=== PATIENT | female | born 1930 | race Caucasian/White ===

== ENCOUNTER 2017-11-04 07:22 | Inpatient (IN) | payer OTHER, MEDICAID ==
[~2017-11-04] VITALS: Ht 160 cm; Wt 72.6 kg
[2017-11-04] MEDS ORDERED: ONDANSETRON HCL 4MG/2ML VIAL IV STA (08:21)
[2017-11-04] MEDS ORDERED: LIDOCAINE HCL 1%/EPI 1:200,000 30 ML VIAL MC ONE (08:30)
[2017-11-04] MEDS ORDERED: TETANUS, DIPHTHERIA, PERTUSSIS VAC/PF 0.5ML (>7YR OLD) IM ONE (08:30)
[2017-11-04] MEDS ORDERED: BACITRACIN ZINC OINT UDPKT TOP ONE (08:30)
[2017-11-04 09:32] LABS: BASOPHILS % 0.3 % (0.0-2.0); EOSINOPHILS % 0.9 % (0.0-5.0); HEMATOCRIT. 38.8 % (36.0-48.0); LYMPHOCYTES % 10.7 % (20.0-50.0); MEAN CORPUSCULAR HEMOGLOBIN 31.5 pg (28.0-32.0); MONOCYTES % 4.6 % (2.0-8.0); NEUTROPHILS % 83.5 % (40.0-76.0); PLATELET 299 x1000/uL (130-400); RED BLOOD CELL COUNT 4.13 mill/uL (4.2-5.4); RED CELL DISTRIBUTION WIDTH 13.5 % (11.6-14.6)
[2017-11-04 09:34] LABS: CHLORIDE 104 mEq/L (98-107)
[2017-11-04 09:35] LABS: PROTHROMBIN TIME 10.6 sec (9.4-11.6)
[2017-11-04 09:45] LABS: CREATINE KINASE 137 IU/L (26-192)
[2017-11-04 10:59] LABS: CLARITY URINE CLEAR (CLEAR); COLOR URINE YELLOW (YELLOW); KETONES URINE NEGATIVE (NEGATIVE); LEUKOCYTE ESTERASE URINE NEGATIVE (NEGATIVE); NITRITE URINE NEGATIVE (NEGATIVE); OCCULT BLOOD URINE NEGATIVE (NEGATIVE); PH URINE 8.5 (4.5-8.0); PROTEIN URINE NEGATIVE (NEGATIVE); SPECIFIC GRAVITY URINE 1.014 (1.005-1.030); UROBILINOGEN URINE 0.2 E.U./dL (0.2-1.0)
[2017-11-04] MEDS ORDERED: ACETAMINOPHEN 325MG TABLET PO PRN (18:45)
[2017-11-04] MEDS ORDERED: MAGNESIUM/ALUMINUM HYDROXIDE/SIMETHICONE 30ML UDC PO PRN (18:45)
[2017-11-04] MEDS ORDERED: ONDANSETRON HCL 4MG/2ML VIAL IV PRN (18:45)
[2017-11-04] MEDS ORDERED: MAGNESIUM HYDROXIDE 400MG/5ML 30ML UDC PO PRN (18:45)
[2017-11-04] MEDS ORDERED: DIPHENHYDRAMINE 50MG/ML VIAL IV PRN (18:45)
[2017-11-04] MEDS ORDERED: CLONIDINE 0.1MG TABLET PO PRN (18:45)
[2017-11-04] MEDS ORDERED: DEXTROSE 50% WATER 50ML SYRINGE IV PRN ×2 (19:00→21:00)
[2017-11-04 21:00] VITALS: BP_SYST 130; BP_SYST 143; BP_DIAS 52; BP_DIAS 57
[2017-11-04] MEDS ORDERED: INSULIN LISPRO 100 UNITS/ML SUBCUT SCH (21:00)
[2017-11-04] MEDS ORDERED: BLOOD SUGAR DIAGNOSTIC STRIP TEST SCH (21:00)
[2017-11-04] MEDS ORDERED: ALPRAZOLAM 0.25 MG TABLET PO SCH (21:00)
[2017-11-04] MEDS ORDERED: SODIUM CHLORIDE 0.9% INJ 3ML FLUSH IVF SCH (22:00)
[2017-11-04] MEDS ORDERED: HYDR25TA PO (22:44)
[2017-11-04] MEDS ORDERED: ALPR-392 PO (22:53)
[2017-11-04] MEDS ORDERED: AMLO10TA80 PO (22:53)
[2017-11-04] MEDS ORDERED: [UNRECOGNIZED DRUG - CODE] PO (22:53)
[2017-11-04] MEDS ORDERED: ZINC50TA2 PO (22:53)
[2017-11-04] MEDS ORDERED: LISI40TA4 PO (22:53)
[2017-11-04] MEDS ORDERED: GLUC100017 PO (22:53)
[2017-11-04] MEDS ORDERED: OCD PO (22:53)
[2017-11-04] MEDS ORDERED: ATOR40TA70 PO (22:53)
[2017-11-04] MEDS ORDERED: ASPI-1159 PO ×2 (22:53)
[2017-11-04] MEDS ORDERED: CRAN450T10 PO (22:53)
[2017-11-05 02:00] VITALS: BP 136/56
[2017-11-05 04:00] VITALS: BP 138/55
[2017-11-05 06:59] LABS: BASOPHILS % 0.2 % (0.0-2.0); EOSINOPHILS % 2.3 % (0.0-5.0); HEMATOCRIT. 32.1 % (36.0-48.0); HEMOGLOBIN. 10.8 g/dL (12.0-16.0); LYMPHOCYTES % 13.9 % (20.0-50.0); MEAN CORPUSCULAR HEMOGLOBIN 31.6 pg (28.0-32.0); MEAN CORPUSCULAR VOLUME 93.7 fL (81.0-99.0); MEAN PLATELET VOLUME 8.4 fl (7.4-10.4); MONOCYTES % 7.4 % (2.0-8.0); NEUTROPHILS % 76.2 % (40.0-76.0); PLATELET 278 x1000/uL (130-400); RED BLOOD CELL COUNT 3.43 mill/uL (4.2-5.4); RED CELL DISTRIBUTION WIDTH 13.4 % (11.6-14.6)
[2017-11-05 07:26] LABS: CHLORIDE 104 mEq/L (98-107)
[2017-11-05] MEDS: BLOOD SUGAR DIAGNOSTIC STRIP TEST SCH ×2 (07:40→13:39)
[2017-11-05] MEDS ORDERED: PARO-41 PO (07:50)
[2017-11-05 08:00] VITALS: BP 131/57
[2017-11-05] MEDS: INSULIN LISPRO 100 UNITS/ML SUBCUT SCH ×2 (08:10→13:10)
[2017-11-05] MEDS ORDERED: AMLODIPINE 5MG TABLET PO SCH (09:00)
[2017-11-05] MEDS ORDERED: DOCUSATE SODIUM 100MG CAPSULE PO SCH (09:00)
[2017-11-05] MEDS ORDERED: LISINOPRIL 5MG TABLET PO SCH (09:00)
[2017-11-05] MEDS ORDERED: LORAZEPAM 2MG/ML CPJ IV NR (11:30)
[2017-11-05 12:00] VITALS: BP 130/54
[2017-11-05 14:40] VITALS: BP 119/54
[2017-11-05] MEDS ORDERED: ALPRAZOLAM 0.25 MG TABLET PO SCH (21:00)
[2017-11-05] MEDS ORDERED: ATORVASTATIN CALCIUM 40MG TABLET PO SCH (21:00)
== END 2017-11-05 15:32 | disposition short-term general hospital (02) | DRG 73 ==
LOC: ER 07:47 → 7WST 12:13 → EDBEDREQ 12:14 → EDBEDREQTM 12:14 → ENRESERV 19:26 → ER 20:50
PROVIDERS: ADMIT Internal Medicine; ATTEND Internal Medicine
PROC: 0HQ0XZZ Repair Scalp Skin, External Approach (ICD-10-PCS; principal; 2017-11-04)
DX: G90.8 Other disorders of autonomic nervous system (principal); G93.40 Encephalopathy, unspecified; S09.90XA Unspecified injury of head, initial encounter; D64.9 Anemia, unspecified; E11.9 Type 2 diabetes mellitus without complications; F41.1 Generalized anxiety disorder; S01.01XA Laceration without foreign body of scalp, initial encounter; R32 Unspecified urinary incontinence; W18.39XA Other fall on same level, initial encounter; I10 Essential (primary) hypertension; Y93.89 Activity, other specified; Y92.89 Other specified places as the place of occurrence of the external cause; Y99.8 Other external cause status; Z88.0 Allergy status to penicillin; Z90.49 Acquired absence of other specified parts of digestive tract; Z88.2 Allergy status to sulfonamides; Z83.3 Family history of diabetes mellitus
CPT/HCPCS: 12002; 36415; 70450; 70551; 71045; 72125; 80048; 80053; 81003; 82550; 82962; 83036; 83735; 83880; 84443; 84484; 85025; 85610; 90471; 90715; 93005; 93970; 96374; 97162; 99285; J2060; J2405

== ENCOUNTER 2020-08-29 09:22 | Emergency (ER) | payer OTHER, MEDICAID ==
[~2020-08-29] VITALS: Ht 157.5 cm; Wt 73.0 kg
[~2020-08-29 09:22] MED LIST: ALPR-392 PO; AMLO10TA80 PO; ASPI-1497 PO; ATOR40TA70 PO; CRAN450T10 PO; GLUC100017 PO; HYDR25TA PO; LISI40TA4 PO; OCD PO; PARO-41 PO; ZINC50TA2 PO; [UNRECOGNIZED DRUG - CODE] PO
[2020-08-29] MEDS ORDERED: SODIUM CHLORIDE 0.9% 1,000 ML IV ONE (10:00)
[2020-08-29 11:07] LABS: BASOPHILS % 0.5 % (0.0-2.0); EOSINOPHILS % 2.8 % (0.0-5.0); HEMATOCRIT. 38.8 % (36.0-48.0); HEMOGLOBIN. 13.1 g/dL (12.0-16.0); LYMPHOCYTES % 26.9 % (20.0-50.0); MEAN CORPUSCULAR HEMOGLOBIN 32.4 pg (28.0-32.0); MEAN CORPUSCULAR VOLUME 95.9 fL (81.0-99.0); MEAN PLATELET VOLUME 7.8 fl (7.4-10.4); MONOCYTES % 6.3 % (2.0-8.0); NEUTROPHILS % 63.5 % (40.0-76.0); PLATELET 344 x1000/uL (130-400); RED BLOOD CELL COUNT 4.05 mill/uL (4.2-5.4); RED CELL DISTRIBUTION WIDTH 12.7 % (11.6-14.6)
[2020-08-29 11:13] LABS: CLARITY URINE CLEAR (CLEAR); COLOR URINE YELLOW (YELLOW); KETONES URINE NEGATIVE (NEGATIVE); LEUKOCYTE ESTERASE URINE TRACE (NEGATIVE); NITRITE URINE NEGATIVE (NEGATIVE); OCCULT BLOOD URINE NEGATIVE (NEGATIVE); PH URINE 7.5 (4.5-8.0); PROTEIN URINE NEGATIVE (NEGATIVE); UROBILINOGEN URINE 0.2 E.U./dL (0.2-1.0)
[2020-08-29 11:13] LABS: CHLORIDE 111 mEq/L (98-107)
[2020-08-29 11:17] LABS: PROTHROMBIN TIME 10.3 sec (9.6-11.0)
[2020-08-29 15:40] VITALS: BP 153/63
== END 2020-08-29 15:47 | disposition short-term general hospital (02) ==
LOC: ER 09:33
DX: R41.82 Altered mental status, unspecified (principal); F03.90 Unspecified dementia, unspecified severity, without behavioral disturbance, psychotic disturbance, mood disturbance, and anxiety; E11.9 Type 2 diabetes mellitus without complications; I10 Essential (primary) hypertension; Z79.899 Other long term (current) drug therapy; Z88.0 Allergy status to penicillin
CPT/HCPCS: 36415; 70450; 71045; 74176; 80053; 81003; 83605; 84145; 84484; 85025; 85610; 87040; 87086; 93005; 96360; 99285; J7030